=== PATIENT | female | born 1955 | race Caucasian/White ===

== ENCOUNTER 2022-05-18 13:19 | Inpatient (IN) | payer OTHER ==
[~2022-05-18] VITALS: Ht 175.3 cm; Wt 56.4 kg
--- NOTE | 2022-05-18 13:25 | NUR ---
Patient to ER bed 2 to gown for evaluation. Side rails up. Report given to LA LAINEZ.
--- NOTE | 2022-05-18 13:30 | NUR ---
ER at bedside examining patient.
[2022-05-18 13:38] VITALS: BP_SYST 133
[2022-05-18] MEDS ORDERED: MAGNESIUM SULFATE 50 ML IV ONE (13:45)
[2022-05-18] MEDS ORDERED: cefTRIAXone 1 GM in D5W 50 ML IV ONE (13:45)
[2022-05-18] MEDS ORDERED: methylPREDNISolone SOD SUCC/PF 62.5 MG/ML VIAL IVP ONE (13:45)
[2022-05-18] MEDS ORDERED: IPRATROPIUM BROM 0.5 MG/2.5 ML VIAL.NEB (ATROVENT) INH ONE (13:45)
[2022-05-18] MEDS ORDERED: NACL 0.9% 1,000 ML IV ONE (13:45)
[2022-05-18] MEDS ORDERED: ALBUTEROL SULFATE 0.083% 2.5 MG/3 ML VIAL.NEB INH ONE (13:45)
--- NOTE | 2022-05-18 13:45 | NUR ---
Pt brought by self, A&Ox4, pt presents to ER with SOB, skin pink and warm, cap refill <3, VSS
--- NOTE | 2022-05-18 13:50 | NUR ---
RT AT BEDSIDE FOR BREATHING TX
--- NOTE | 2022-05-18 13:52 | NUR ---
Pt placed on 2L NC due to O2 89%
[2022-05-18 14:01] LABS: BASOPHILS % (AUTO) 0.1 % (0.0-2.0); HEMATOCRIT 40.8 % (36-48); HEMOGLOBIN 13.3 g/dL (12.0-16.0); LYMPHOCYTES # (AUTO) 0.4 K/uL (1.0-5.5); LYMPHOCYTES % (AUTO) 2.5 % (20.5-51.5); MEAN CORPUSCULAR HEMOGLOBIN 30 pg (27-31); MEAN CORPUSCULAR HGB CONC 33 % (32-36); MEAN CORPUSCULAR VOLUME 93 fL (79.0-98.0); MONOCYTES # (AUTO) 0.6 K/uL (0.0-1.0); MONOCYTES % (AUTO) 3.4 % (1.7-9.3); NEUTROPHILS # (AUTO) 16.3 K/uL (1.8-7.7); PLATELET COUNT (AUTO) 231 K/uL (130-430); RED BLOOD CELL COUNT(AUTO) 4.39 MIL/uL (4.2-6.2); RED CELL DISTRIBUTION WIDTH 14.2 % (9.0-15.0); WHITE BLOOD COUNT (AUTO) 17.4 K/uL (4.8-10.8)
[2022-05-18 14:09] LABS: ANION GAP 9 (5-15); CALCIUM 8.6 mg/dL (8.4-11.0); CHLORIDE 102 mmol/L (98-107); CREATININE 0.66 mg/dL (0.55-1.30); GLUCOSE 151 mg/dL (70-99); UREA NITROGEN, BLOOD 16 mg/dL (8-21)
[2022-05-18 14:16] LABS: GFR AFRICAN AMERICAN 115 mL/min (>90)
[2022-05-18 14:17] LABS: ALANINE AMINOTRANSFERASE 13 U/L (12-78); ALBUMIN 2.4 g/dL (3.4-4.8); ASPARTATE AMINOTRANSFERASE 15 U/L (10-37); TOTAL BILIRUBIN 0.6 mg/dL (0.0-1.0)
[2022-05-18] MEDS ORDERED: AZITHROMYCIN 500 MG in NS 250 ML IV ONE (14:30)
[2022-05-18] MEDS ORDERED: guaiFENesin/DEXTROMETHORPHAN 10 ML UDC PO ONE (14:30)
[2022-05-18] MEDS ORDERED: AZITHROMYCIN 500 MG/VIAL (ZITHROMAX) IV ONE ×2 (15:29→22:41)
[2022-05-18] MEDS ORDERED: cefTRIAXone 1 GM IVPB PREMIX 50 ML IV ONE (15:35)
--- NOTE | 2022-05-18 16:32 | NUR ---
Admit bed requested Patient will be admitted to care of Dr GONZALEZ. Admitted to TELE unit. Diagnosis COPD EXACERBATION Inpatient (Yes or No) N/A Observation (Yes or No) N/A Orientation concerns or request close to nursing station (Yes or No) N/A Covid Status NEGATIVE On vent or bipap N/A Isolation requirements N/A Needs a sitter N/A From Home (Yes or if No enter name of facility) YES Requires Dialysis (Yes or No) N/A Med Rec Completed (Yes of No) N/A
--- NOTE | 2022-05-18 18:05 | NUR ---
Pt resting in bed at this time, no s/s of distress, will cont to monitor
--- NOTE | 2022-05-18 18:20 | NUR ---
Dinner tray given to patient
--- NOTE | 2022-05-18 19:10 | NUR ---
Report given to Violet LAINEZ
--- NOTE | 2022-05-18 20:52 | NUR ---
Transfer to TELEMETRY via ACLS protocol. Licensed nurse present. IV present no signs or symptoms of infiltration.
--- NOTE | 2022-05-18 21:00 | NUR ---
ADMISSION NOTE Received patient from ER via gurney. Patient admitted with diagnosis of COPD, RESPIRATORY FAILURE. Patient is awake, alert, oriented X 4. Patient oriented to hospital room, call light, toileting, pain management and safety-teach back done. Patient informed that their room number is 134A. Personal belongings checked and Belongings List documented. Call light within reach.
--- NOTE | 2022-05-18 21:21 | NUR ---
CONSULTATION PAGED REASON FOR CONSULTATION: COPD, Respiratory Failure WAS CONSULT CALLED? Y PERSON WHO WAS NOTIFIED: Genevieve CONSULTING PHYSICIAN: Dr. Shine REQUESTING PHYSICIAN: Miguel Angel Kat Addendum: 05/19/22 at 0420 by Demetria Bauer AR/ CONSULT CANCELLED Consult for Dr. Shine was cancelled by Miguel Angel Kat as per his notes.
[2022-05-18 21:24] VITALS: BP_SYST 147
[2022-05-18] MEDS ORDERED: ACETAMINOPHEN 325 MG TABLET PO PRN (21:30)
[2022-05-18] MEDS ORDERED: HYDROcodone/ACETAMIN 5-325 MG TAB (NORCO/ VICODIN) PO PRN (21:30)
[2022-05-18] MEDS ORDERED: NALOXONE HCL 0.4 MG/ML AMP (NARCAN) IVP PRN ×2 (21:30)
[2022-05-18] MEDS ORDERED: HYDROcodone/ACETAMIN 10-325 MG TAB PO PRN (21:30)
[2022-05-18] MEDS ORDERED: ONDANSETRON HCL 4 MG/2 ML VIAL IVP PRN (21:30)
[2022-05-18 21:45] VITALS: BP_SYST 147
[2022-05-18] MEDS ORDERED: NORMAL SALINE 5 ML DISP.SYRIN IVF SCH (22:00)
[2022-05-18] MEDS: ALBUTEROL SULFATE 0.083% 2.5 MG/3 ML VIAL.NEB INH SCH (22:35)
[2022-05-18] MEDS: IPRATROPIUM BROM 0.5 MG/2.5 ML VIAL.NEB (ATROVENT) INH SCH (22:35)
[2022-05-18] MEDS: AZITHROMYCIN 500 MG in NS 250 ML IV SCH (22:50)
[2022-05-18] MEDS: NORMAL SALINE 5 ML DISP.SYRIN IVF SCH (22:50)
[2022-05-19] VITALS: BP_SYST 123
--- NOTE | 2022-05-19 01:00 | NUR ---
ROUNDS Pt lying in bed, eyes closed. Breathing even and unlabored. Fall and safety precautions in place
[2022-05-19] MEDS: ALBUTEROL SULFATE 0.083% 2.5 MG/3 ML VIAL.NEB INH SCH ×6 (03:42→23:25)
[2022-05-19] MEDS: IPRATROPIUM BROM 0.5 MG/2.5 ML VIAL.NEB (ATROVENT) INH SCH ×6 (03:42→23:25)
--- NOTE | 2022-05-19 04:32 | NUR ---
Consultation Paged Reason for Consultation: COPD, Respiratory Failure Was consult called: Y Person who was notified: Jimmy Consulting Physician: Dr. Hahn Ordering Physician: Miguel Angel Kat
--- NOTE | 2022-05-19 04:39 | NUR ---
Consultation Paged Reason for Consultation: pneumonia Was consult called: Y Person who was notified: Qing Consulting Physician: Dr. Birch Ordering Physician: Miguel Angel Kat
[2022-05-19] MEDS: NORMAL SALINE 5 ML DISP.SYRIN IVF SCH ×3 (05:41→21:26)
[2022-05-19 06:07] LABS: BASOPHILS % (AUTO) 0.3 % (0.0-2.0); EOSINOPHILS % (AUTO) 0.3 % (0.0-4.0); HEMATOCRIT 37.8 % (36-48); HEMOGLOBIN 12.2 g/dL (12.0-16.0); LYMPHOCYTES # (AUTO) 0.6 K/uL (1.0-5.5); LYMPHOCYTES % (AUTO) 4.5 % (20.5-51.5); MEAN CORPUSCULAR HEMOGLOBIN 30 pg (27-31); MEAN CORPUSCULAR HGB CONC 32 % (32-36); MEAN CORPUSCULAR VOLUME 94 fL (79.0-98.0); MONOCYTES # (AUTO) 0.3 K/uL (0.0-1.0); MONOCYTES % (AUTO) 2.4 % (1.7-9.3); NEUTROPHILS # (AUTO) 13.2 K/uL (1.8-7.7); NEUTROPHILS % (AUTO) 92.5 % (40.0-70.0); PLATELET COUNT (AUTO) 226 K/uL (130-430); RED BLOOD CELL COUNT(AUTO) 4.03 MIL/uL (4.2-6.2); RED CELL DISTRIBUTION WIDTH 14.3 % (9.0-15.0); WHITE BLOOD COUNT (AUTO) 14.2 K/uL (4.8-10.8)
--- NOTE | 2022-05-19 06:40 | NUR ---
OPENING NOTE Pt is lying awake in bed. No s/s of respiratory distress. Breathing even and unlabored on 4L nasal cannula. IV site intact and patent saline lock. All needs met throughout shift. Fall and safety precautions in place with bed in lowest position, bed alarm on, and call light within reach Addendum: 05/19/22 at 0640 by Merline Garcia RN CLOSING NOTE, NOT OPENING NOTE
[2022-05-19 06:44] LABS: ALBUMIN 2.1 g/dL (3.4-4.8); CALCIUM 8.4 mg/dL (8.4-11.0); CREATININE 0.39 mg/dL (0.55-1.30); PHOSPHORUS 3.4 mg/dL (2.7-4.5); TOTAL BILIRUBIN 0.2 mg/dL (0.0-1.0)
--- NOTE | 2022-05-19 07:06 | NUR ---
OPENING NOTE RECEIVED SBAR FROM NIGHT RN. PATIENT IN BED, RESPIRATIONS EVEN, NON LABORED, 2L O2 NASAL CANULA. BED IN LOW AND LOCKED POSITION, CALL LIGHT WITHIN REACH. IV IS SALINE LOCKED
[2022-05-19 08:00] VITALS: BP_SYST 127
[2022-05-19] MEDS ORDERED: POTASSIUM CHLORIDE 20 MEQ TAB.PRT.SR PO ONE (08:00)
--- NOTE | 2022-05-19 08:00 | NUR ---
potassium entered potassium order on wrong patient order canceled
[2022-05-19] MEDS: METHYLPREDNISOLONE SOD SUCC 40 MG/ML VIAL IVP SCH ×2 (08:13→21:24)
[2022-05-19 11:49] VITALS: BP_SYST 110
[2022-05-19] MEDS: cefTRIAXone 1 GM IVPB PREMIX 50 ML IV SCH (12:12)
--- NOTE | 2022-05-19 13:51 | NUR ---
nurse note patient in bed, respirations even, shallow. on 2L 02 nasal canula. IV is saline locked. Patient denies any pain or discomfort. Bed in low and locked position, call light within reach.
[2022-05-19 16:35] VITALS: BP_SYST 120
--- NOTE | 2022-05-19 17:40 | NUR ---
NURSE NOTE PATIENT IN BED, RESPIRATIONS EVEN, NON LABORED, BED IN LOW AND LOCKED POSITION, CALL LIGHT WITHIN REACH. 2L O2 NASAL CANULA. PATIENT DENIES ANY PAIN OR DISCOMFORT
--- NOTE | 2022-05-19 19:20 | NUR ---
CLOSING NOTE PROVIDED SBAR TO NIGHT RN. PATIENT IN BED, RESPIRATIONS EVEN, NON LABORED, 2L O2 NASAL CANULA. BED IN LOW AND LOCKED POSITION, CALL LIGHT WITHIN REACH. IV IS SALINE LOCKED ENDORSED CARE TO NIGHT RN.
[2022-05-19 20:00] VITALS: BP_SYST 120
[2022-05-19] MEDS: AZITHROMYCIN 500 MG in NS 250 ML IV SCH (21:23)
[2022-05-20 01:00] VITALS: BP_SYST 117
[2022-05-20] MEDS: IPRATROPIUM BROM 0.5 MG/2.5 ML VIAL.NEB (ATROVENT) INH SCH ×6 (03:58→23:00)
[2022-05-20] MEDS: ALBUTEROL SULFATE 0.083% 2.5 MG/3 ML VIAL.NEB INH SCH ×6 (03:58→23:00)
[2022-05-20 05:00] VITALS: BP_SYST 129
[2022-05-20] MEDS: NORMAL SALINE 5 ML DISP.SYRIN IVF SCH ×2 (05:32→14:00)
[2022-05-20 06:56] LABS: C-REACTIVE PROTEIN QUANT 8.7 mg/dL (0-0.5); CALCIUM 8.2 mg/dL (8.4-11.0); CREATININE 0.57 mg/dL (0.55-1.30); HEMATOCRIT 36.3 % (36-48); HEMOGLOBIN 11.9 g/dL (12.0-16.0); LYMPHOCYTES # (AUTO) 0.8 K/uL (1.0-5.5); MEAN CORPUSCULAR HEMOGLOBIN 31 pg (27-31); MEAN CORPUSCULAR HGB CONC 33 % (32-36); MEAN CORPUSCULAR VOLUME 93 fL (79.0-98.0); MONOCYTES # (AUTO) 0.7 K/uL (0.0-1.0); MONOCYTES % (AUTO) 3.3 % (1.7-9.3); NEUTROPHILS # (AUTO) 18.8 K/uL (1.8-7.7); NEUTROPHILS % (AUTO) 92.7 % (40.0-70.0); PLATELET COUNT (AUTO) 300 K/uL (130-430); RED BLOOD CELL COUNT(AUTO) 3.91 MIL/uL (4.2-6.2); RED CELL DISTRIBUTION WIDTH 14.2 % (9.0-15.0); WHITE BLOOD COUNT (AUTO) 20.2 K/uL (4.8-10.8)
--- NOTE | 2022-05-20 07:18 | NUR ---
OPENING NOTE RECEIVED SBAR FROM NIGHT RN. PATIENT IN BED, RESPIRATIONS EVEN, NON LABORED. BED IN LOW AND LOCKED POSITION, CALL LIGHT WITHIN REACH. IV IS SALINE LOCKED
[2022-05-20 08:00] VITALS: BP_SYST 125
[2022-05-20] MEDS: METHYLPREDNISOLONE SOD SUCC 40 MG/ML VIAL IVP SCH ×2 (08:14→20:53)
[2022-05-20 11:35] VITALS: BP_SYST 124
[2022-05-20 12:06] LABS: ERYTHROCYTE SEDIMENTATION RATE 38 MM/HR (0-20)
[2022-05-20] MEDS: cefTRIAXone 1 GM IVPB PREMIX 50 ML IV SCH (12:30)
--- NOTE | 2022-05-20 12:43 | NUR ---
nurse note patient in bed, respirations even, non labored, bed in low and locked position, call light within reach. patient has non productive cough. 2L 02 nasal canula
--- NOTE | 2022-05-20 15:00 | NUR ---
nurse note patient in bed, respirations even, non labored, bed in low and locked position, call light within reach. IV is saline locked. 2L 02 nasal canula. Patient denies any pain or discomfort.
[2022-05-20 16:34] VITALS: BP_SYST 118
--- NOTE | 2022-05-20 19:15 | NUR ---
OPENING NOTE REPORT RECEIVED FROM DAYSHIFT NURSE. PATIENT RECEIVED LYING IN BED, AWAKE, NO S/S OF ACUTE DISTRESS. BREATHING IS EVEN AND UNLABORED. HOB RAISED. IV SITE PATENT, NO SIGNS OF INFILTRATION OR INFECTION NOTED. CALL LIGHT WITH PATIENT. WILL CONTINUE TO MONITOR.
--- NOTE | 2022-05-20 19:18 | NUR ---
CLOSING NOTE PROVIDED SBAR FROM NIGHT patient in bed, respirations even, non labored, bed in low and locked position, call light within reach. IV is saline locked. 2L 02 nasal canula. Patient denies any pain or discomfort.
[2022-05-20 20:00] VITALS: BP_SYST 136
[2022-05-20] MEDS: AZITHROMYCIN 500 MG in NS 250 ML IV SCH (20:53)
[2022-05-21 02:01] VITALS: BP_SYST 102
[2022-05-21] MEDS: IPRATROPIUM BROM 0.5 MG/2.5 ML VIAL.NEB (ATROVENT) INH SCH ×6 (02:27→23:06)
[2022-05-21] MEDS: ALBUTEROL SULFATE 0.083% 2.5 MG/3 ML VIAL.NEB INH SCH ×6 (02:27→23:06)
[2022-05-21] MEDS: NORMAL SALINE 5 ML DISP.SYRIN IVF SCH ×2 (05:08→14:00)
--- NOTE | 2022-05-21 06:42 | NUR ---
CLOSING NOTE PATIENT IN BED, RESTING AT THIS TIME. NO S/S OF ACUTE DISTRESS. BREATHING EVEN AND UNLABORED. ALL NEEDS MET THROUGHOUT SHIFT. FALL, SAFETY PRECAUTIONS MAINTAINED THROUGHOUT SHIFT. WILL CONTINUE TO MONITOR UNTIL PATIENT CARE IS ENDORSED TO ONCOMING DAYSHIFT NURSE.
--- NOTE | 2022-05-21 08:00 | NUR ---
Initial notes Received patient wake in bed watching TV, AAOx4, respiration even and unlabored, no signs distress. No c/o pain at this time. IV saline lock left hand patent no signs of infiltration. Continue all safety and precaution, patient reposition, bed in low position and call light w/in reached, continue to monitor.
[2022-05-21 08:41] VITALS: BP_SYST 114
[2022-05-21] MEDS: METHYLPREDNISOLONE SOD SUCC 40 MG/ML VIAL IVP SCH ×2 (08:45→21:13)
[2022-05-21 12:00] VITALS: BP_SYST 109
[2022-05-21] MEDS: cefTRIAXone 1 GM IVPB PREMIX 50 ML IV SCH (12:11)
[2022-05-21] MEDS ORDERED: DOXY100C5 PO (14:20)
[2022-05-21] MEDS ORDERED: ALBMDI INH (14:20)
[2022-05-21] MEDS ORDERED: BUDE6.9H INH (14:20)
[2022-05-21 15:12] VITALS: BP_SYST 109
[2022-05-21 16:27] VITALS: BP_SYST 111
--- NOTE | 2022-05-21 19:30 | NUR ---
Closing No c/o SOB/pain, vital signs w/in norm, maintain safety precaution during my shift, will endorse.
[2022-05-21 20:00] VITALS: BP_SYST 112
[2022-05-21] MEDS: AZITHROMYCIN 500 MG in NS 250 ML IV SCH (21:13)
[2022-05-22] VITALS: BP_SYST 115
[2022-05-22 01:59] VITALS: BP_SYST 136
[2022-05-22] MEDS ORDERED: PRED20TA PO (02:11)
[2022-05-22 02:16] VITALS: BP_SYST 130
--- NOTE | 2022-05-22 02:18 | NUR ---
Communicated with HCP regarding patient still at the hospital despite discharge order due to prednisone conflict. Made changes to discharge format. Patient ok to stay overnight and discharge in morning.
--- NOTE | 2022-05-22 02:58 | NUR ---
Report given to night club manager RN for continuity of care. Patient stable condition.
[2022-05-22] MEDS: ALBUTEROL SULFATE 0.083% 2.5 MG/3 ML VIAL.NEB INH SCH (03:00)
[2022-05-22] MEDS: IPRATROPIUM BROM 0.5 MG/2.5 ML VIAL.NEB (ATROVENT) INH SCH (03:00)
--- NOTE | 2022-05-22 03:02 | NUR ---
Received report from FATOU John for continuity of care. Pt is resting in bed, eyes closed. No s/s of respiratory distress. Breathing even and unlabored. Pt to be discharged in the morning. Fall and safety precautions in place with bed in lowest position and call light within reach
--- NOTE | 2022-05-22 06:35 | NUR ---
Educated pt on discharge instructions. Pt waiting for daughter to call her to pick her up. No s/s of acute distress. Fall and safety checks in place
--- NOTE | 2022-05-22 08:26 | NUR ---
IV SALINE LOCK DISCONTINUED W/ CATHETER INTACT. DISCHARGE INSTRUCTION GIVEN TO PATENT FROM PREVIOUS SHIFT ( NIGHT NURSE). PATIENT AMBULATE OFF UNIT WITH DAUGHTER
[2022-05-22 15:16] LABS: IMMUNOGLOBULIN E,TOTAL 4114 IU/mL (6-495)
[2022-05-22 21:07] LABS: MYCOPLASMA PNEUMONIAE IgM <770 U/mL (0-769)
== END 2022-05-22 07:35 | disposition home or self-care (01) | DRG 871 ==
LOC: SED 13:19 → STU 15:57 → SMU 05-20 13:06
PROVIDERS: ADMIT Specialist; ATTEND Specialist
DX: A41.9 Sepsis, unspecified organism (principal); J18.9 Pneumonia, unspecified organism; J96.01 Acute respiratory failure with hypoxia; J44.0 Chronic obstructive pulmonary disease with (acute) lower respiratory infection; J44.1 Chronic obstructive pulmonary disease with (acute) exacerbation; D72.829 Elevated white blood cell count, unspecified; R73.9 Hyperglycemia, unspecified; E88.09 Other disorders of plasma-protein metabolism, not elsewhere classified; Z20.822 Contact with and (suspected) exposure to COVID-19; Z88.0 Allergy status to penicillin; Z79.899 Other long term (current) drug therapy; Z72.0 Tobacco use
CPT/HCPCS: 36415; 36600; 71045; 71250-TC; 76376; 80048; 80053; 82785; 82800-TC; 82803-TC; 83605; 83735; 83880; 84100; 84484; 85025; 85651-TC; 86140; 86738; 87040; 87305; 93005; 94640; 94760; 96361; 96365; 96367; 96375; 99285; G0378; J0456; J0696; J1030; J2930; J3475; J7050; J7613